=== PATIENT | female | born 1940 | race Caucasian/White ===

== ENCOUNTER 2018-11-05 11:26 | Inpatient (IN) ==
--- NOTE | 2018-11-05 12:00 | Emergency Department Note ---
Disposition Clinical Impression: Colitis Syncope Qualifiers: Syncope type: unspecified Qualified Code(s): R55 - Syncope and collapse GI bleed Qualifiers: GI bleed type/associated pathology: unspecified gastrointestinal hemorrhage type Qualified Code(s): K92.2 - Gastrointestinal hemorrhage, unspecified Disposition: Admitted As Inpatient Condition: Good GI Bleed HPI - General Chief complaint: ED GI Bleed Stated complaint: Rectal Bleeding Time Seen by Provider: 11/05/18 11:36 Source: patient, family Mode of arrival: private vehicle Limitations: no limitations Nursing Notes Reviewed: Yes Vital Signs Reviewed: Yes - History of Present Illness HPI Narrative: Patient is a 78-year-old female with past medical history including hypertension, diabetes mellitus type 2, presenting with chief complaint of bright red blood per rectum since yesterday. Patient has a history of having a history of syncope and GI bleed which she was admitted for and was found to have ischemic colitis. She did not require any transfusions. Last colonoscopy was in March 2018 which was normal per family. Patient states on the evening of the , patient had several episodes of syncope for the patient felt lightheaded and lost consciousness. Family witnessed the events and states she was out for less than a minute. EMS called and family and EMS were unable to get accurate blood pressure measurements. The patient did not want to come to the ER for further evaluation. The past 2 days the patient has been in her normal state of health until yesterday evening when the patient had 2 episodes of bright red blood per rectum. This was not associated with stool. This morning she had one episode of bright red blood filling the toilet. She complains of right lower left lower quadrant abdominal pain that is crampy and started after the first episode of rectal bleeding. Also complains of decreased appetite, generalized weakness, intermittent palpitations otherwise denies chest pain, lightheadedness, shortness of breath. - Related Data Home Medications Medication Instructions Recorded Confirmed Alendronate Sodium [Fosamax] 10 mg PO SA 02/04/16 11/05/18 Aspirin [Adult Low Dose Aspirin EC] 81 mg PO DAILY 02/04/16 11/05/18 Potassium Chloride [Klor-Con 10 meq PO DAILY 02/04/16 11/05/18 Sprinkle] Atorvastatin [Lipitor] 40 mg PO HS 08/28/17 11/05/18 Calcium Carbonate/Vitamin D3 1 tab PO DAILY 08/28/17 11/05/18 [Calcium 500 + Vit D Caplet] Multivit-Min/Iron/Folic/Lutein 1 tab PO DAILY 08/28/17 11/05/18 [Centrum Silver Women Tablet] DULoxetine [Cymbalta] 30 mg PO DAILY 11/05/18 11/05/18 Lisinopril [Zestril] 10 mg PO DAILY 11/05/18 11/05/18 Metoprolol Succinate [Toprol Xl] 100 mg PO DAILY 11/05/18 11/05/18 Pantoprazole Sodium [Protonix] 40 mg PO DAILY 11/05/18 11/05/18 Previous Rx's Medication Instructions Recorded Clopidogrel [Plavix] 75 mg PO DAILY #30 tablet 08/28/17 Allergies Allergy/AdvReac Type Severity Reaction Status Date / Time Amoxicillin Allergy Swelling Verified 08/28/17 10:42 of Lip/Tongue/Throat Oxycodone AdvReac See Verified 08/28/17 10:42 Comments All systems ED: reviewed and negative except as stated. Review of Systems: As Per HPI Constitutional: Denies: fever, chills Eyes: Denies: eye pain, vision change ENT ED: Denies: ear pain, throat pain Cardiovascular: Reports: palpitations. Denies: chest pain Respiratory: Denies: cough, dyspnea, wheezes Gastrointestinal: Reports: abdominal pain, other (Bright red blood per rectum). Denies: nausea, vomiting, diarrhea Genitourinary: Denies: urgency, dysuria Musculoskeletal: Denies: back pain, neck pain Integumentary: Denies: rash, abrasion Neurological: Reports: weakness. Denies: headache, paresthesias Allergic/Immunologic: Denies: urticaria, itchy eyes Past Medical History - Past Medical History Attestation: Yes The following information was validated with the patient. Source: patient Medical history: Reports: GERD, hyperlipidemia, hypertension, seizures Surgical history: Reports: knee replacement, orthopedic, other, other, vascular surgery Psychiatric history: Reports: anxiety, depression - Social History Smoking Status: Current every day smoker Smokeless Tobacco Status: No Alcohol use: Reports: none Drug use: Reports: none Physical Exam - General Limitations: no limitations General appearance: alert, in no apparent distress - Head Head exam: atraumatic, normocephalic, normal inspection - Eye Eye exam: Present: normal appearance, EOMI - ENT ENT exam: normal exam, normal oropharynx, mucous membranes moist - Neck Neck exam: Present: normal inspection, full ROM, trachea midline - Chest Chest inspection: Present: normal inspection, symmetric chest wall rise - Respiratory Respiratory exam: Present: normal lung sounds bilaterally. Absent: respiratory distress, wheezes - Cardiovascular Cardiovascular exam: Present: regular rate, normal rhythm, normal heart sounds - Abdominal Exam Abdominal exam: Present: soft, Non-Tender. Absent: tenderness, distention, guarding, rebound, rigidity - Rectal Exam Seal Extrusion Operator present during exam: Yes (Dr. Salcedo) Rectal exam: Present: normal rectal tone, bloody stool. Absent: hemorrhoids - Extremities Exam Extremities exam: Present: normal inspection, full ROM. Absent: tenderness, pedal edema - Neurological Exam Neurological exam: Present: alert, oriented X3, CN II-XII intact - Psychiatric Psychiatric exam: Present: normal affect, normal mood - Skin Skin exam: Present: warm, dry, intact, normal color Course Vital Signs Temperature 98.2 F 11/05/18 11:29 Pulse Rate 108 11/05/18 11:29 Respiratory Rate 18 11/05/18 11:29 Blood Pressure 134/84 11/05/18 11:29 O2 Sat by Pulse Oximetry 18 11/05/18 11:29 Temperature 98.2 F 11/05/18 11:29 Pulse Rate 108 11/05/18 11:29 Respiratory Rate 18 11/05/18 11:29 Blood Pressure 134/84 11/05/18 11:29 O2 Sat by Pulse Oximetry 18 11/05/18 11:29 Oxygen Delivery Oxygen Delivery Room Air GI Bleed - [facility] Narrative Medical decision making narrative: Patient presented with similar signs and symptoms couple years ago, and was found to have ischemic colitis secondary to transient hypotension. Patient is complaining of lower abdominal pain and 3 episodes of bright red blood per rectum since yesterday evening. No peritoneal signs on abdominal examination. We will obtain CT abdomen and pelvis with IV contrast, CBC, BMP, type and scr een, PT INR. Patient also had a syncopal event and complaining of generalized weakness and will also obtain EKG, urinalysis. 12:30 EKG without acute ischemic changes. Rectal examination completed with land acquisition analyst with positive bright red blood, no hemorrhoids. Hemoglobin is 12.6. Patient is not tachycardic or hypotensive. 12:55 Stool hemoccult positive 14:15 Labs and imaging reviewed. Patient has mild leukocytosis. Mild elevation in creatinine otherwise it is at her baseline. CT results positive for colitis. We will start IV antibiotics with flagyl and cipro and admit the patient for further management of colitis. 14:30 Discussed with hospitalist who accepts admission. Patient remains medically stable. - Medical Records Medical records reviewed: Yes I reviewed the patient's medical records. - Lab Data Lab results reviewed: Yes I reviewed the patient's lab results. Result diagrams: 11/05/18 12:17 11/05/18 12:17 Lab Results 11/05/18 11/05/18 11/05/18 Range/Units 12:17 12:17 12:17 WBC 12.5 H (4.3-11.1) K/mcL RBC 4.10 (3.82-4.97) M/mcL Hgb 12.6 (11.5-15.4) g/dL Hct 38.4 (35.3-44.9) % MCV 93.7 (83.0-100.0) fL MCH 30.7 (28.0-33.3) pg MCHC 32.8 (31.6-35.5) g/dL RDW 13.8 (11.5-14.5) % Plt Count 180 (140-400) K/mcL MPV 11.0 (9.4-12.4) fL Immature Gran % 0.3 (0-4) % Seg Neutrophils % 86.2 % Lymphocytes % 6.7 % Monocytes % 6.5 % Eosinophils % 0.1 % Basophils % 0.2 % Neutrophils # 10.8 H (1.6-8.9) K/mcL Lymphocytes # 0.8 (0.6-4.6) K/mcL Monocytes # 0.8 (0.0-1.3) K/mcL Eosinophils # 0.0 (0.0-0.6) K/mcL Basophils # 0.0 (0.0-0.2) K/mcL PT (9.4-12.1) Seconds INR Sodium 134 L (136-145) mEq/L Potassium 4.0 (3.5-5.1) mEq/L Chloride 100 (98-107) mEq/L Carbon Dioxide 24 (23-29) mEq/L BUN 27 H (8-23) mg/dL Creatinine 1.24 H (0.60-1.20) mg/dL Est GFR ( Amer) 51 L (> 60) Est GFR (Non-Af Amer) 42 L (> 60) BUN/Creatinine Ratio 22 (6-26) Glucose 98 (70-105) mg/dL Calculated Osmolality 283 (280-300) Lactic Acid 1.2 (0.5-2.2) mmol/L Calcium 9.6 (8.6-10.3) mg/dL Urine Color (Yellow) Urine Clarity (Clear) Urine pH (5.0-8.0) pH Units Ur Specific [place] (1.010-1.025) Urine Protein (Neg-Trace) mg/dL Urine Glucose (UA) (Normal) mg/dL Urine Ketones (Negative) mg/dL Urine Blood (Negative) Urine Nitrite (Negative) Urine Bilirubin (Negative) Urine Urobilinogen (Normal) mg/dL Ur Leukocyte Esterase (Negative) Urine Microscopic RBC (0-3) per hpf Urine Microscopic WBC (0-3) per hpf Ur Squamous Epith Cells (None-Few) per lpf Urine Bacteria (None-Few) per hpf Hyaline Casts (None-Few) per lpf Ur Culture Indicated? (NO) Stool Occult Bld Scrn (Negative) Blood Type Antibody Screen 11/05/18 11/05/18 11/05/18 Range/Units 12:17 12:17 12:29 WBC (4.3-11.1) K/mcL RBC (3.82-4.97) M/mcL Hgb (11.5-15.4) g/dL Hct (35.3-44.9) % MCV (83.0-100.0) fL MCH (28.0-33.3) pg MCHC (31.6-35.5) g/dL RDW (11.5-14.5) % Plt Count (140-400) K/mcL MPV (9.4-12.4) fL Immature Gran % (0-4) % Seg Neutrophils % % Lymphocytes % % Monocytes % % Eosinophils % % Basophils % % Neutrophils # (1.6-8.9) K/mcL Lymphocytes # (0.6-4.6) K/mcL Monocytes # (0.0-1.3) K/mcL Eosinophils # (0.0-0.6) K/mcL Basophils # (0.0-0.2) K/mcL PT 13.7 H (9.4-12.1) Seconds INR 1.2 Sodium (136-145) mEq/L Potassium (3.5-5.1) mEq/L Chloride (98-107) mEq/L Carbon Dioxide (23-29) mEq/L BUN (8-23) mg/dL Creatinine (0.60-1.20) mg/dL Est GFR ( Amer) (> 60) Est GFR (Non-Af Amer) (> 60) BUN/Creatinine Ratio (6-26) Glucose (70-105) mg/dL Calculated Osmolality (280-300) Lactic Acid (0.5-2.2) mmol/L Calcium (8.6-10.3) mg/dL Urine Color (Yellow) Urine Clarity (Clear) Urine pH (5.0-8.0) pH Units Ur Specific [place] (1.010-1.025) Urine Protein (Neg-Trace) mg/dL Urine Glucose (UA) (Normal) mg/dL Urine Ketones (Negative) mg/dL Urine Blood (Negative) Urine Nitrite (Negative) Urine Bilirubin (Negative) Urine Urobilinogen (Normal) mg/dL Ur Leukocyte Esterase (Negative) Urine Microscopic RBC (0-3) per hpf Urine Microscopic WBC (0-3) per hpf Ur Squamous Epith Cells (None-Few) per lpf Urine Bacteria (None-Few) per hpf Hyaline Casts (None-Few) per lpf Ur Culture Indicated? (NO) Stool Occult Bld Scrn Positive A (Negative) Blood Type A POSITIVE Antibody Screen NEGATIVE 11/05/18 Range/Units 13:04 WBC (4.3-11.1) K/mcL RBC (3.82-4.97) M/mcL Hgb (11.5-15.4) g/dL Hct (35.3-44.9) % MCV (83.0-100.0) fL MCH (28.0-33.3) pg MCHC (31.6-35.5) g/dL RDW (11.5-14.5) % Plt Count (140-400) K/mcL MPV (9.4-12.4) fL Immature Gran % (0-4) % Seg Neutrophils % % Lymphocytes % % Monocytes % % Eosinophils % % Basophils % % Neutrophils # (1.6-8.9) K/mcL Lymphocytes # (0.6-4.6) K/mcL Monocytes # (0.0-1.3) K/mcL Eosinophils # (0.0-0.6) K/mcL Basophils # (0.0-0.2) K/mcL PT (9.4-12.1) Seconds INR Sodium (136-145) mEq/L Potassium (3.5-5.1) mEq/L Chloride (98-107) mEq/L Carbon Dioxide (23-29) mEq/L BUN (8-23) mg/dL Creatinine (0.60-1.20) mg/dL Est GFR ( Amer) (> 60) Est GFR (Non-Af Amer) (> 60) BUN/Creatinine Ratio (6-26) Glucose (70-105) mg/dL Calculated Osmolality (280-300) Lactic Acid (0.5-2.2) mmol/L Calcium (8.6-10.3) mg/dL Urine Color Dark Yellow (Yellow) Urine Clarity Clear (Clear) Urine pH 6.0 (5.0-8.0) pH Units Ur Specific [place] 1.024 (1.010-1.025) Urine Protein Trace (Neg-Trace) mg/dL Urine Glucose (UA) Normal (Normal) mg/dL Urine Ketones 15 H (Negative) mg/dL Urine Blood Negative (Negative) Urine Nitrite Negative (Negative) Urine Bilirubin Moderate H (Negative) Urine Urobilinogen Normal (Normal) mg/dL Ur Leukocyte Esterase Trace H (Negative) Urine Microscopic RBC 0-3 (0-3) per hpf Urine Microscopic WBC 3-5 H (0-3) per hpf Ur Squamous Epith Cells Many H (None-Few) per lpf Urine Bacteria None Seen (None-Few) per hpf Hyaline Casts None Seen (None-Few) per lpf Ur Culture Indicated? NO. A (NO) Stool Occult Bld Scrn (Negative) Blood Type Antibody Screen - Radiology Data Radiology results reviewed: Yes I reviewed the patient's radiology results. Abdomen/Pelvis CTA 11/05/18 12:02 IMPRESSION: 1. Extensive colonic wall thickening, edema and pericolonic inflammation representing nonspecific colitis. 2. Small ascites. 3. Bilateral nonobstructing renal calculi. 4. Ectatic abdominal aorta. 5. Atherosclerosis. D/ / 11/05/2018 14:17:09 Joshua Griggs MD / clay Interpreting Provider: Joshua Griggs MD - EKG Data EKG attestation: Yes I reviewed and interpreted this EKG. EKG results narrative: EKG from today at 1232 shows sinus rhythm with heart rate 65. [address] elevation in V2 otherwise no other ST elevation or depression in other leads.Reciprocal changes. HI interval 151. QRS duration 92. Compared to prior EKG on August 252016 which at that time showed sinus bradycardia heart rate 53.
[2018-11-05] MEDS ORDERED: Isovue-370 500 ML INFUS..BTL IV ONE (12:02)
--- NOTE | 2018-11-05 12:04 | Emergency Department Note ---
Disposition Clinical Impression: Colitis, Syncope, GI bleed Disposition: Admitted As Inpatient Condition: Good General Adult HPI - General Chief complaint: ED GI Bleed Stated complaint: Rectal Bleeding Time Seen by Provider: 11/05/18 11:36 Source: patient, family Mode of arrival: private vehicle Limitations: no limitations - History of Present Illness Pain Scale: 5 - Related Data Home Medications Medication Instructions Recorded Confirmed Alendronate Sodium [Fosamax] 10 mg PO SA 02/04/16 11/05/18 Aspirin [Adult Low Dose Aspirin EC] 81 mg PO DAILY 02/04/16 11/05/18 Potassium Chloride [Klor-Con 10 meq PO DAILY 02/04/16 11/05/18 Sprinkle] Atorvastatin [Lipitor] 40 mg PO HS 08/28/17 11/05/18 Calcium Carbonate/Vitamin D3 1 tab PO DAILY 08/28/17 11/05/18 [Calcium 500 + Vit D Caplet] Multivit-Min/Iron/Folic/Lutein 1 tab PO DAILY 08/28/17 11/05/18 [Centrum Silver Women Tablet] DULoxetine [Cymbalta] 30 mg PO DAILY 11/05/18 11/05/18 Lisinopril [Zestril] 10 mg PO DAILY 11/05/18 11/05/18 Metoprolol Succinate [Toprol Xl] 100 mg PO DAILY 11/05/18 11/05/18 Pantoprazole Sodium [Protonix] 40 mg PO DAILY 11/05/18 11/05/18 Previous Rx's Medication Instructions Recorded Clopidogrel [Plavix] 75 mg PO DAILY #30 tablet 08/28/17 Allergies Allergy/AdvReac Type Severity Reaction Status Date / Time Amoxicillin Allergy Swelling Verified 08/28/17 10:42 of Lip/Tongue/Throat Oxycodone AdvReac See Verified 08/28/17 10:42 Comments Past Medical History - Past Medical History Medical history: Reports: GERD, hyperlipidemia, hypertension, seizures Surgical history: Reports: knee replacement, orthopedic, other, other, vascular surgery Psychiatric history: Reports: anxiety, depression - Social History Smoking Status: Current every day smoker Smokeless Tobacco Status: No Alcohol use: Reports: none Drug use: Reports: none Physical Exam - General Limitations: no limitations General appearance: alert, in no apparent distress Course Vital Signs Temperature 98.2 F 11/05/18 11:29 Pulse Rate 108 11/05/18 11:29 Respiratory Rate 18 11/05/18 11:29 Blood Pressure 134/84 11/05/18 11:29 O2 Sat by Pulse Oximetry 18 11/05/18 11:29 Temperature 98.2 F 11/05/18 11:29 Pulse Rate 108 11/05/18 11:29 Respiratory Rate 18 11/05/18 11:29 Blood Pressure 134/84 11/05/18 11:29 O2 Sat by Pulse Oximetry 18 11/05/18 11:29 Oxygen Delivery Oxygen Delivery Room Air Medical Decision Making - Lab Data Result diagrams: 11/05/18 12:17 11/05/18 12:17 Lab Results 11/05/18 11/05/18 11/05/18 Range/Units 12:17 12:17 12:17 WBC 12.5 H (4.3-11.1) K/mcL RBC 4.10 (3.82-4.97) M/mcL Hgb 12.6 (11.5-15.4) g/dL Hct 38.4 (35.3-44.9) % MCV 93.7 (83.0-100.0) fL MCH 30.7 (28.0-33.3) pg MCHC 32.8 (31.6-35.5) g/dL RDW 13.8 (11.5-14.5) % Plt Count 180 (140-400) K/mcL MPV 11.0 (9.4-12.4) fL Immature Gran % 0.3 (0-4) % Seg Neutrophils % 86.2 % Lymphocytes % 6.7 % Monocytes % 6.5 % Eosinophils % 0.1 % Basophils % 0.2 % Neutrophils # 10.8 H (1.6-8.9) K/mcL Lymphocytes # 0.8 (0.6-4.6) K/mcL Monocytes # 0.8 (0.0-1.3) K/mcL Eosinophils # 0.0 (0.0-0.6) K/mcL Basophils # 0.0 (0.0-0.2) K/mcL PT (9.4-12.1) Seconds INR Sodium 134 L (136-145) mEq/L Potassium 4.0 (3.5-5.1) mEq/L Chloride 100 (98-107) mEq/L Carbon Dioxide 24 (23-29) mEq/L BUN 27 H (8-23) mg/dL Creatinine 1.24 H (0.60-1.20) mg/dL Est GFR ( Amer) 51 L (> 60) Est GFR (Non-Af Amer) 42 L (> 60) BUN/Creatinine Ratio 22 (6-26) Glucose 98 (70-105) mg/dL Calculated Osmolality 283 (280-300) Lactic Acid 1.2 (0.5-2.2) mmol/L Calcium 9.6 (8.6-10.3) mg/dL Urine Color (Yellow) Urine Clarity (Clear) Urine pH (5.0-8.0) pH Units Ur Specific [place] (1.010-1.025) Urine Protein (Neg-Trace) mg/dL Urine Glucose (UA) (Normal) mg/dL Urine Ketones (Negative) mg/dL Urine Blood (Negative) Urine Nitrite (Negative) Urine Bilirubin (Negative) Urine Urobilinogen (Normal) mg/dL Ur Leukocyte Esterase (Negative) Urine Microscopic RBC (0-3) per hpf Urine Microscopic WBC (0-3) per hpf Ur Squamous Epith Cells (None-Few) per lpf Urine Bacteria (None-Few) per hpf Hyaline Casts (None-Few) per lpf Ur Culture Indicated? (NO) Stool Occult Bld Scrn (Negative) Blood Type Antibody Screen 11/05/18 11/05/18 11/05/18 Range/Units 12:17 12:17 12:29 WBC (4.3-11.1) K/mcL RBC (3.82-4.97) M/mcL Hgb (11.5-15.4) g/dL Hct (35.3-44.9) % MCV (83.0-100.0) fL MCH (28.0-33.3) pg MCHC (31.6-35.5) g/dL RDW (11.5-14.5) % Plt Count (140-400) K/mcL MPV (9.4-12.4) fL Immature Gran % (0-4) % Seg Neutrophils % % Lymphocytes % % Monocytes % % Eosinophils % % Basophils % % Neutrophils # (1.6-8.9) K/mcL Lymphocytes # (0.6-4.6) K/mcL Monocytes # (0.0-1.3) K/mcL Eosinophils # (0.0-0.6) K/mcL Basophils # (0.0-0.2) K/mcL PT 13.7 H (9.4-12.1) Seconds INR 1.2 Sodium (136-145) mEq/L Potassium (3.5-5.1) mEq/L Chloride (98-107) mEq/L Carbon Dioxide (23-29) mEq/L BUN (8-23) mg/dL Creatinine (0.60-1.20) mg/dL Est GFR ( Amer) (> 60) Est GFR (Non-Af Amer) (> 60) BUN/Creatinine Ratio (6-26) Glucose (70-105) mg/dL Calculated Osmolality (280-300) Lactic Acid (0.5-2.2) mmol/L Calcium (8.6-10.3) mg/dL Urine Color (Yellow) Urine Clarity (Clear) Urine pH (5.0-8.0) pH Units Ur Specific [place] (1.010-1.025) Urine Protein (Neg-Trace) mg/dL Urine Glucose (UA) (Normal) mg/dL Urine Ketones (Negative) mg/dL Urine Blood (Negative) Urine Nitrite (Negative) Urine Bilirubin (Negative) Urine Urobilinogen (Normal) mg/dL Ur Leukocyte Esterase (Negative) Urine Microscopic RBC (0-3) per hpf Urine Microscopic WBC (0-3) per hpf Ur Squamous Epith Cells (None-Few) per lpf Urine Bacteria (None-Few) per hpf Hyaline Casts (None-Few) per lpf Ur Culture Indicated? (NO) Stool Occult Bld Scrn Positive A (Negative) Blood Type A POSITIVE Antibody Screen NEGATIVE 11/05/18 Range/Units 13:04 WBC (4.3-11.1) K/mcL RBC (3.82-4.97) M/mcL Hgb (11.5-15.4) g/dL Hct (35.3-44.9) % MCV (83.0-100.0) fL MCH (28.0-33.3) pg MCHC (31.6-35.5) g/dL RDW (11.5-14.5) % Plt Count (140-400) K/mcL MPV (9.4-12.4) fL Immature Gran % (0-4) % Seg Neutrophils % % Lymphocytes % % Monocytes % % Eosinophils % % Basophils % % Neutrophils # (1.6-8.9) K/mcL Lymphocytes # (0.6-4.6) K/mcL Monocytes # (0.0-1.3) K/mcL Eosinophils # (0.0-0.6) K/mcL Basophils # (0.0-0.2) K/mcL PT (9.4-12.1) Seconds INR Sodium (136-145) mEq/L Potassium (3.5-5.1) mEq/L Chloride (98-107) mEq/L Carbon Dioxide (23-29) mEq/L BUN (8-23) mg/dL Creatinine (0.60-1.20) mg/dL Est GFR ( Amer) (> 60) Est GFR (Non-Af Amer) (> 60) BUN/Creatinine Ratio (6-26) Glucose (70-105) mg/dL Calculated Osmolality (280-300) Lactic Acid (0.5-2.2) mmol/L Calcium (8.6-10.3) mg/dL Urine Color Dark Yellow (Yellow) Urine Clarity Clear (Clear) Urine pH 6.0 (5.0-8.0) pH Units Ur Specific [place] 1.024 (1.010-1.025) Urine Protein Trace (Neg-Trace) mg/dL Urine Glucose (UA) Normal (Normal) mg/dL Urine Ketones 15 H (Negative) mg/dL Urine Blood Negative (Negative) Urine Nitrite Negative (Negative) Urine Bilirubin Moderate H (Negative) Urine Urobilinogen Normal (Normal) mg/dL Ur Leukocyte Esterase Trace H (Negative) Urine Microscopic RBC 0-3 (0-3) per hpf Urine Microscopic WBC 3-5 H (0-3) per hpf Ur Squamous Epith Cells Many H (None-Few) per lpf Urine Bacteria None Seen (None-Few) per hpf Hyaline Casts None Seen (None-Few) per lpf Ur Culture Indicated? NO. A (NO) Stool Occult Bld Scrn (Negative) Blood Type Antibody Screen Attestation Statement - Attestation Attestation: I examined this patient and my medical decision-making was reviewed with the Resident Physician. I agree with the documented findings, disposition and treatment plan as described except to the extent set forth below. Patient presents to the ED with a chief complaint of rectal bleeding and syncope. Syncopal episode was 2 days ago while on the toilet. Yesterday she started having bright red blood with bowel movements. Bleeding in between as well. No history of rectal bleeding. She said she had colonoscopy in March that showed diverticulosis. On examination she appears well. Pleasant conversant. Soft abdomen with lower tenderness. Plan. Basic labs with coags and CT abdomen pelvis. CT shows colitis. Patient is given antibiotics and admitted. Abdomen/Pelvis CTA 11/05/18 12:02 IMPRESSION: 1. Extensive colonic wall thickening, edema and pericolonic inflammation representing nonspecific colitis. 2. Small ascites. 3. Bilateral nonobstructing renal calculi. 4. Ectatic abdominal aorta. 5. Atherosclerosis. D/ / 11/05/2018 14:17:09 Joshua Griggs MD / clay Interpreting Provider: Joshua Griggs MD
[2018-11-05 12:29] LABS: Basophils % 0.2 %; Eosinophils % 0.1 %; Hematocrit 38.4 % (35.3-44.9); Hemoglobin 12.6 g/dL (11.5-15.4); Immature Granulocytes % 0.3 % (0-4); Lymphocytes # 0.8 K/mcL (0.6-4.6); Lymphocytes % 6.7 %; Mean Corpuscular HGB Conc 32.8 g/dL (31.6-35.5); Mean Corpuscular Hemoglobin 30.7 pg (28.0-33.3); Mean Corpuscular Volume 93.7 fL (83.0-100.0); Monocytes # 0.8 K/mcL (0.0-1.3); Monocytes % 6.5 %; Neutrophils # 10.8 K/mcL (1.6-8.9); Platelet Count 180 K/mcL (140-400); Red Cell Distribution Width 13.8 % (11.5-14.5); Segmented Neutrophils % 86.2 %
[2018-11-05 12:37] LABS: INR 1.2; Prothrombin Time 13.7 Seconds (9.4-12.1)
[2018-11-05 13:09] LABS: Calcium 9.6 mg/dL (8.6-10.3)
[2018-11-05 13:11] LABS: Bilirubin,Urine Moderate (Negative); Blood,Urine Negative (Negative); Clarity,Urine Clear (Clear); Color,Urine Dark Yellow (Yellow); Glucose,Urine (UA) Normal (Normal); Ketones,Urine 15 mg/dL (Negative); Leukocyte Esterase,Urine Trace (Negative); Nitrite,Urine Negative (Negative); Protein,Urine Trace mg/dL (Neg-Trace); Specific Gravity,Urine 1.024 (1.010-1.025); Urobilinogen,Urine Normal (Normal)
[2018-11-05 13:13] LABS: Bacteria,Urine None Seen per hpf (None-Few); Hyaline Casts,Urine None Seen per lpf (None-Few); RBC,Urine 0-3 per hpf (0-3); Squamous Epithelial Cell,Urine Many per lpf (None-Few)
[2018-11-05] MEDS ORDERED: 0.9 % Sodium Chloride 500 ML IVC ONE (14:17)
[2018-11-05] MEDS ORDERED: MetroNIDAZOLE 500 MG/100 ML 500 MG/100 ML BAG IVPB ONE (14:18)
--- NOTE | 2018-11-05 15:43 | Internal Med History&Physical ---
Date of Encounter: 11/05/18 Time of Encounter: 15:34 Internal Medicine - H&P: HPI Chief complaint: BRBPR Admitted From: Home Plans for Post Hospital Care: Home History of present illness: Ms. Orellana is a 78 year old female who has history of hypertension hyperlipidemia GERD depression presented to emergency room for bright red blood per rectal. Patient developed rectal bleeding last evening with a large bloody bowel movement, this morning she had another 2 episodes with fresh red blood from rectal. She also has some abdominal pain started from yesterday, constant, a 5 out of 10 ,lower abdominal, associated was nausea and loss of appetite. She denies fever or chills. 2 days ago she had to syncopal episode, that was Day she was in the bathroom she passed out then her Family try to help her up she keep passing out over last 40 minutes, EMS was called and she was find a low blood pressure 90/?. Patient refused to came to ER. After syncopal episode and she started nausea, loss of appetite and mild abdominal pain.. In the emergency room she was find hemoglobin 12.6, WBC 12K, creatinine was elevated, and CTA abdomen showed monk-colitis. patient is going be admitted for GI bleeding from colitis and a syncopal workup Past Med Surg Social Fam HX - Past Medical History Medical history: GERD, hyperlipidemia, hypertension, seizures Additional medical history: colon polyps, ddd, [id number], PVD, Osetopenia Psychiatric history: anxiety, depression - Past Surgical History Surgical History: knee replacement, orthopedic, other, other, vascular surgery Additional surgical history: egd/colonoscopy,back,shoulder,hemorrhoidectomy - Social History Smoking Status: Current every day smoker Smokeless Tobacco Status: No Alcohol use: none Drug use: none - Family History Mother Living Status: Hx Family Cardiac Disorders: Yes (heart attack) Hx Family Neurologic Disorders: Yes (Stroke) Sister Living Status: Still Living Hx Family Cardiac Disorders: Yes Internal Medicine - H&P: Meds Alendronate Sodium [Fosamax] 10 mg PO SA 02/04/16 [History] Aspirin [Adult Low Dose Aspirin EC] 81 mg PO DAILY 02/04/16 [History] Potassium Chloride [Klor-Con Sprinkle] 10 meq PO DAILY 02/04/16 [History] Atorvastatin [Lipitor] 40 mg PO HS 08/28/17 [History] Calcium Carbonate/Vitamin D3 [Calcium 500 + Vit D Caplet] 1 tab PO DAILY 08/28/17 [History] Clopidogrel [Plavix] 75 mg PO DAILY #30 tablet 08/28/17 [Rx] Multivit-Min/Iron/Folic/Lutein [Centrum Silver Women Tablet] 1 tab PO DAILY 08/28/17 [History] DULoxetine [Cymbalta] 30 mg PO DAILY 11/05/18 [History] Lisinopril [Zestril] 10 mg PO DAILY 11/05/18 [History] Metoprolol Succinate [Toprol Xl] 100 mg PO DAILY 11/05/18 [History] Pantoprazole Sodium [Protonix] 40 mg PO DAILY 11/05/18 [History] Allergy/AdvReac Type Severity Reaction Status Date / Time Amoxicillin Allergy Swelling Verified 08/28/17 10:42 of Lip/Tongue/Throat Oxycodone AdvReac See Verified 08/28/17 10:42 Comments All Systems PM: A 10-system review of systems was performed and is negative for pertinent findings except as documented above in the HPI. - Constitutional Vitals: Temp Pulse Resp BP Pulse Ox 98.2 F 108 18 134/84 18 11/05/18 11:29 11/05/18 11:29 11/05/18 11:29 11/05/18 11:29 11/05/18 11:29 General appearance: Present: A&O X 3, pleasant Exam: CONSTITUTIONAL: Patient appears as an age appropriate female well developed, in no acute distress. EYES Clear sclerae, bilateral pupils are equal, reactive to light and accommodation. Extraocular movements are intact RESPIRATORY: No accessory muscle use, bilateral clear to auscultation, no wheezing, no crackles/rales. CARDIOVASCULAR: Regular heart rate, normal S1 and S2, no murmurs GASTROINTESTINAL: bowel sounds present, soft, mild tenderness. No hepatosplenomegaly. No bilateral CVA tenderness MUSCULOSKELETAL: Joints in normal range of motion, no clubbing, no edema, no cyanosis. Bilateral peripheral pulses 2+ LYMPHATIC no lymphadenopathy in neck, groin and axilla bilaterally, no thyromegaly. NEUROLOGIC: CN II to XII are grossly intact, no focal neurological deficit. Deep tendon reflexes 2+ bilaterally. Normal light touch sensation to upper and lower extremity PSYCHIATRIC: Oriented x3, with good insight, mood is euthymic. No hallucinations or delusions. SKIN: Skin warm and dry, no rashes, no open wound. Internal Med - H&P Results - Labs CBC & Chem 7: 11/05/18 12:17 11/05/18 12:17 Labs: Short CBC 11/05/18 Range/Units 12:17 WBC 12.5 H (4.3-11.1) K/mcL Hgb 12.6 (11.5-15.4) g/dL Hct 38.4 (35.3-44.9) % Plt Count 180 (140-400) K/mcL Neutrophils # 10.8 H (1.6-8.9) K/mcL BMP 11/05/18 12:17 Sodium 134 L Potassium 4.0 Chloride 100 Carbon Dioxide 24 BUN 27 H Creatinine 1.24 H Glucose 98 Calcium 9.6 Urine 11/05/18 Range/Units 13:04 Urine Color Dark Yellow (Yellow) Urine Clarity Clear (Clear) Urine pH 6.0 (5.0-8.0) pH Units Ur Specific [place] 1.024 (1.010-1.025) Urine Protein Trace (Neg-Trace) mg/dL Urine Glucose (UA) Normal (Normal) mg/dL - Impressions ITS Impressions Abdomen/Pelvis CTA 11/05/18 12:02 IMPRESSION: 1. Extensive colonic wall thickening, edema and pericolonic inflammation representing nonspecific colitis. 2. Small ascites. 3. Bilateral nonobstructing renal calculi. 4. Ectatic abdominal aorta. 5. Atherosclerosis. D/ / 11/05/2018 14:17:09 Joshua Griggs MD / clay Interpreting Provider: Joshua Griggs MD - Assessment and plan (1) GI bleed Current Visit: Yes Status: Acute Assessment and plan: from colitis, contineu ATB Qualifiers: GI bleed type/associated pathology: anorectal hemorrhage Qualified Code(s): K62.5 - Hemorrhage of anus and rectum (2) Pancolitis Current Visit: Yes Status: Acute Assessment and plan: possible ischemic bowel due to hypotension and syncope, conitneu NPO, ATB, CT angio of abdomen is done in ER (3) MIN (acute kidney injury) Current Visit: Yes Status: Acute Assessment and plan: due to hypotension, conitnue IVF (4) Episode of syncope Current Visit: Yes Status: Acute Assessment and plan: likley dehydration and overmedicated, hold BB and ACEI Qualifiers: Syncope type: vasovagal syncope Qualified Code(s): R55 - Syncope and collapse (5) Hypertension Current Visit: Yes Status: Acute Qualifiers: Hypertension type: essential hypertension Qualified Code(s): I10 - Essential (primary) hypertension - Time Spent With Patient Total time spent is greater than 50% in coordination of care (as documented) at patient's floor/unit and/or counseling patient: Greater than 35 minutes
[2018-11-05] MEDS ORDERED: Naloxone 0.4 MG/ML INJ IVP PRN (15:59)
[2018-11-05] MEDS: *HR* Heparin 5,000 UNIT/ML VIAL SQ SCH (17:31)
[2018-11-05] MEDS: Ringers Solution, Lactated 1,000 ML IVC SCH (17:31)
[2018-11-05] MEDS ORDERED: Acetaminophen 325 MG TABLET PO PRN (18:53)
[2018-11-05] MEDS: MetroNIDAZOLE 500 MG/100 ML 500 MG/100 ML BAG IVPB SCH (23:46)
[2018-11-06] MEDS ORDERED: *HR* Dextrose 50 % in Water (Syg) 50 ML SYRINGE IVP PRN (01:18)
[2018-11-06] MEDS ORDERED: D5% in Water 1,000 ML IVC PRN (01:18)
[2018-11-06] MEDS ORDERED: Dextrose Gel 15 GM/37.5 ML TUBE PO PRN ×2 (01:18)
[2018-11-06 04:56] LABS: Basophils % 0.2 %; Eosinophils % 0.3 %; Hematocrit 35.1 % (35.3-44.9); Hemoglobin 11.4 g/dL (11.5-15.4); Immature Granulocytes % 0.3 % (0-4); Lymphocytes # 1.3 K/mcL (0.6-4.6); Lymphocytes % 14.5 %; Mean Corpuscular HGB Conc 32.5 g/dL (31.6-35.5); Mean Corpuscular Hemoglobin 30.5 pg (28.0-33.3); Mean Corpuscular Volume 93.9 fL (83.0-100.0); Mean Platelet Volume 11.1 fL (9.4-12.4); Monocytes # 0.8 K/mcL (0.0-1.3); Monocytes % 9.5 %; Neutrophils # 6.5 K/mcL (1.6-8.9); Platelet Count 160 K/mcL (140-400); Red Blood Count 3.74 M/mcL (3.82-4.97); Red Cell Distribution Width 13.8 % (11.5-14.5); Segmented Neutrophils % 75.2 %
[2018-11-06 05:15] LABS: BUN/Creatinine Ratio 19 (6-26); Blood Urea Nitrogen 18 mg/dL (8-23); Calcium 8.8 mg/dL (8.6-10.3); Carbon Dioxide 23 mEq/L (23-29); Chloride 105 mEq/L (98-107); Chol/HDL Ratio 2.4 (0-4.9); Cholesterol 130 mg/dL (< 200); Glucose 73 mg/dL (70-105); HDL Cholesterol 55 mg/dL (40-59); LDL Cholesterol,Calculated 57 mg/dL (0-99); Osmolality,Calculated 284 (280-300); Potassium 3.1 mEq/L (3.5-5.1); Sodium 137 mEq/L (136-145); Triglycerides 88 mg/dL (< 150); eGFR For Non-African Americans 57 (> 60)
[2018-11-06] MEDS: *HR* Heparin 5,000 UNIT/ML VIAL SQ SCH (05:36)
[2018-11-06] MEDS: Ringers Solution, Lactated 1,000 ML IVC SCH (07:30)
[2018-11-06] MEDS: MetroNIDAZOLE 500 MG/100 ML 500 MG/100 ML BAG IVPB SCH (07:34)
[2018-11-06] MEDS ORDERED: Aspirin Enteric Coated 81 MG Tablet PO SCH (09:00)
--- NOTE | 2018-11-06 09:22 | Electrocardiograph Report ---
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
--- NOTE | 2018-11-06 11:19 | Internal Med Progress Note ---
Hospitalist Progress Note - Encounter Date of Encounter: 11/06/18 Time of Encounter: 11:17 - Subjective Interval History: Pt reports feeling bloated. She denies N/V or diarrhea. She denies CP or SOB. - Exam Vitals: Temp Pulse Resp BP Pulse Ox 98.0 F 63 15 127/64 94 11/06/18 07:07 11/06/18 07:07 11/06/18 07:07 11/06/18 07:07 11/06/18 07:07 Exam: CONSTITUTIONAL: Patient appears as an age appropriate female well developed, in no acute distress. EYES Clear sclerae, bilateral pupils are equal, reactive to light and accommodation. Extraocular movements are intact RESPIRATORY: No accessory muscle use, bilateral clear to auscultation, no wheezing, no crackles/rales. CARDIOVASCULAR: Regular heart rate, normal S1 and S2, no murmurs GASTROINTESTINAL: bowel sounds present, soft, mild tenderness. No hepatosplenomegaly. No bilateral CVA tenderness MUSCULOSKELETAL: Joints in normal range of motion, no clubbing, no edema, no cyanosis. Bilateral peripheral pulses 2+ LYMPHATIC no lymphadenopathy in neck, groin and axilla bilaterally, no thyromegaly. NEUROLOGIC: CN II to XII are grossly intact, no focal neurological deficit. Deep tendon reflexes 2+ bilaterally. Normal light touch sensation to upper and lower extremity PSYCHIATRIC: Oriented x3, with good insight, mood is euthymic. No hallucinations or delusions. SKIN: Skin warm and dry, no rashes, no open wound. - Assessment and Plan (1) GI bleed Current Visit: Yes Status: Acute Assessment and Plan: Occult blood positive. Hgb 11.4. Consulting GI to see. (2) Pancolitis Current Visit: Yes Status: Acute Assessment and Plan: Pt started on Cipro and Flagyl. Will consult GI to see. (3) Episode of syncope Current Visit: Yes Status: Acute Assessment and Plan: Likely dehydration. BP medication held on admission. Pt is on BB and ACEI (4) MIN (acute kidney injury) Current Visit: Yes Status: Acute Assessment and Plan: Resolved Cr down from 1.24 to 0.95 (5) HTN (hypertension) Current Visit: Yes Status: Chronic Assessment and Plan: Will slowly reintroduce BP medication. Will start with Metoprolol 100 mg PO QD. DVT Prophylaxis: Heparin - Summary of Assessment and Plan Summary of Assessment and Plan: History of present illness: Dr. Weldon Ms. Orellana is a 78 year old female who has history of hypertension hyperlipidemia GERD depression presented to emergency room for bright red blood per rectal. Patient developed rectal bleeding last evening with a large bloody bowel movement, this morning she had another 2 episodes with fresh red blood from rectal. She also has some abdominal pain started from yesterday, constant, a 5 out of 10 ,lower abdominal, associated was nausea and loss of appetite. She denies fever or chills. 2 days ago she had to syncopal episode, that was [place] Day she was in the bathroom she passed out then her Family try to help her up she keep passing out over last 40 minutes, EMS was called and she was find a low blood pressure 90/?. Patient refused to came to ER. After syncopal episode and she started nausea, loss of appetite and mild abdominal pain.. In the emergency room she was find hemoglobin 12.6, WBC 12K, creatinine was elevated, and CTA abdomen showed monk-colitis. patient is going be admitted for GI bleeding from colitis and a syncopal workup - Time Spent with Patient Total time spent is greater than 50% in coordination of care (as documented) at patient's floor/unit and/or counseling patient: less than 15 minutes Plan of Care Discussed with: patient Internal Medicine: Result - Labs CBC & Chem 7: 11/06/18 04:26 11/06/18 04:26 Labs: Short CBC 11/05/18 11/06/18 Range/Units 12:17 04:26 WBC 12.5 H 8.7 (4.3-11.1) K/mcL Hgb 12.6 11.4 L (11.5-15.4) g/dL Hct 38.4 35.1 L (35.3-44.9) % Plt Count 180 160 (140-400) K/mcL Neutrophils # 10.8 H 6.5 (1.6-8.9) K/mcL BMP 11/05/18 11/06/18 12:17 04:26 Sodium 134 L 137 Potassium 4.0 3.1 L Chloride 100 105 Carbon Dioxide 24 23 BUN 27 H 18 Creatinine 1.24 H 0.95 Glucose 98 73 Calcium 9.6 8.8 Cardiac Enzymes 11/05/18 11/05/18 11/06/18 Range/Units 16:55 21:50 04:26 Troponin I < 0.03 < 0.03 < 0.03 (< 0.04) ng/mL Urine 11/05/18 Range/Units 13:04 Urine Color Dark Yellow (Yellow) Urine Clarity Clear (Clear) Urine pH 6.0 (5.0-8.0) pH Units Ur Specific [place] 1.024 (1.010-1.025) Urine Protein Trace (Neg-Trace) mg/dL Urine Glucose (UA) Normal (Normal) mg/dL - ABG Interpretation ABG results: PT/INR, D-dimer PT 13.7 Seconds (9.4-12.1) H 11/05/18 12:17 - Impressions Impressions Abdomen/Pelvis CTA 11/05/18 12:02 IMPRESSION: 1. Extensive colonic wall thickening, edema and pericolonic inflammation representing nonspecific colitis. 2. Small ascites. 3. Bilateral nonobstructing renal calculi. 4. Ectatic abdominal aorta. 5. Atherosclerosis. D/ / 11/05/2018 14:17:09 Joshua Griggs MD / clay Interpreting Provider: Joshua Griggs MD Consult Discharge Plan - Plan Referrals: Corazon Vallejo MD [Primary Care Provider] - (1) GI bleed Qualifiers: GI bleed type/associated pathology: anorectal hemorrhage Qualified Code(s): K62.5 - Hemorrhage of anus and rectum (3) Episode of syncope Qualifiers: Syncope type: vasovagal syncope Qualified Code(s): R55 - Syncope and collapse (5) HTN (hypertension) Qualifiers: Hypertension type: essential hypertension Qualified Code(s): I10 - Essential (primary) hypertension
--- NOTE | 2018-11-06 14:02 | Gastroenterology Consult Note ---
Date of Encounter: 11/06/18 Time of Encounter: 13:40 - Assessment and plan (1) Colitis Current Visit: Yes Status: Acute Assessment and plan: CTA abdomen shows extensive monk-colitis. Likely ischemic colitis. Continue Cipro and Flagyl. Instructed patient that dehydration and constipation can lead to ischemic colitis. Recommend daily fiber supplement. Start clear liquid diet. If patient tolerating oral intake, ok to discharge home. Follow up in GI office with Dr. Rubio in 3 weeks. (2) GI bleed Current Visit: Yes Status: Acute Assessment and plan: Likely secondary to ischemic colitis. On admission Hgb 12.6 and today Hgb 11.4. Continue to monitor CBC and transfuse PRBC as needed. No further episodes of bleeding since admission. Qualifiers: GI bleed type/associated pathology: anorectal hemorrhage Qualified Code(s): K62.5 - Hemorrhage of anus and rectum - Time Spent With Patient Total time spent is greater than 50% in coordination of care (as documented) at patient's floor/unit and/or counseling patient: GI History of Present Illness - Data of Consult Patient: known to practice within the last 3 years Consult date: 11/06/18 Requesting Physician: Declan Weldon MD - Consult Narrative Reason for consult: Possitive fecal occult blood History of present illness: Ms. Orellana is a 78 year old female with PMHx of GERD, HLD, HTN, who presented to the ED for c/o BRBPR that started the evening of 11/03. She had 3 episodes of BRBPR prior to admission. She reported abdominal pain and cramping in the lower abdomen, which was associated with nausea. She reports a syncopal episode on as well. Patient reports normally having a BM every 1-2 days, and occasionally has to strain. On admission Hgb 12.6 and today Hgb 11.4. CTA abdomen shows extensive monk-colitis. Procedures: Colonoscopy 04/07/2018 Dr. Kemp: Diverticulosis, seven 2-3 mm hy perplastic polyps in rectum. Colonoscopy 02/08/2016 Dr. Zamarripa: Two tubular adenoma ranging from 5-10mm, ischemic colitis. EGD 02/08/2016 Dr. Zamarripa: Small hiatus hernia, emperic dilation of esophagus. NSAIDs: ASA Anticoagulation: Plavix Past Med Surg Social Fam HX - Past Medical History Medical history: GERD, hyperlipidemia, hypertension, seizures, other Additional medical history: colon polyps, ddd, [id number], PVD, Osetopenia, stents in bilateral legs Psychiatric history: anxiety, depression - Past Surgical History Surgical History: knee replacement, orthopedic, other, other, vascular surgery Additional surgical history: egd/colonoscopy,back,shoulder,hemorrhoidectomy - Social History Smoking Status: Current every day smoker Smokeless Tobacco Status: No Alcohol use: none Drug use: none - Family History Mother Living Status: Age at : 85 Hx Family Cardiac Disorders: Yes Hx Family Neurologic Disorders: Yes (Stroke) Sister Living Status: Still Living Hx Family Cardiac Disorders: Yes - Gastrointestinal Gastrointestinal: Present: as per HPI - Constitutional Constitutional: as per HPI - EENT Eyes: as per HPI Ears: Present: as per HPI Nose, mouth and throat: Present: as per HPI - Cardiovascular Cardiovascular ROS: Present: as per HPI - Respiratory Respiratory IM: Present: as per HPI - Genitourinary Genitourinary: Absent: change in color, Urinary frequency - Neurological ROS Neurological GI: Present: as per HPI - Hematologic/Lymphatic Hematologic/Lymphatic pediatric: Present: as per HPI - Musculoskeletal Musculoskeletal ROS GI: Present: as per HPI - Integumentary Integumentary GI: Present: as per HPI - Psychiatric ROS Psychiatric GI: Present: as per HPI - Endocrine Endocrine IM: Present: as per HPI - Constitutional Vitals: Temp Pulse Resp BP Pulse Ox 98.1 F 64 16 153/87 97 11/06/18 12:14 11/06/18 12:14 11/06/18 12:14 11/06/18 12:14 11/06/18 12:14 General appearance: Present: cooperative, A&O X 3, no acute distress, answers questions appropriately - Head Head exam: Present: atraumatic, normocephalic - Eye Eye exam: Present: normal appearance, sclera anicteric - ENT ENT exam: Present: mucous membranes dry - Neck Neck exam general surgery: Present: normal inspection, trachea midline - Respiratory Respiratory exam: Present: CTAB. Absent: rales, rhonchi - Cardiovascular Cardiovascular exam: Present: RRR, +S1, +S2 - GI/Abdominal GI/Abdominal exam: Present: soft, tenderness (Mild lower abdominal tenderness), no peritoneal signs. Absent: distended, firm, guarding - Rectal Rectal exam: Present: deferred - Extremities Exam Extremities exam: Present: warm - Neurological Exam Neurological exam: Present: no focal deficits - Psychiatric Psychiatric exam: Present: normal affect, normal mood - Skin Skin exam: Present: dry, intact, normal color, warm Results - Labs CBC & Chem 7: 11/06/18 04:26 11/06/18 04:26 Labs: Last Result Calcium 8.8 mg/dL (8.6-10.3) 11/06/18 04:26 Troponin I < 0.03 ng/mL (< 0.04) 11/06/18 04:26 Triglycerides 88 mg/dL (< 150) 11/06/18 04:26 Entire Visit Hgb 11.4 g/dL (11.5-15.4) L 11/06/18 04:26 Hct 35.1 % (35.3-44.9) L 11/06/18 04:26 PT 13.7 Seconds (9.4-12.1) H 11/05/18 12:17 - ABG ABG results: PT/INR, D-dimer PT 13.7 Seconds (9.4-12.1) H 11/05/18 12:17 - Impressions Impressions Abdomen/Pelvis CTA 11/05/18 12:02 IMPRESSION: 1. Extensive colonic wall thickening, edema and pericolonic inflammation representing nonspecific colitis. 2. Small ascites. 3. Bilateral nonobstructing renal calculi. 4. Ectatic abdominal aorta. 5. Atherosclerosis. D/ / 11/05/2018 14:17:09 Joshua Griggs MD / clay Interpreting Provider: Joshua Griggs MD Consult Discharge Plan - Plan Referrals: Corazon Vallejo MD [Primary Care Provider] -
--- NOTE | 2018-11-06 14:52 | Discharge Summary ---
- NOTES TO OUTPATIENT PROVIDER Notes to Outpatient Provider: PCP in 5 to 7 days. GI in 3 weeks Orders not resulted at time of discharge: Pending orders 11/05/18 12:15 Culture,Blood [BC] Stat Date of Encounter: 11/06/18 Time of Encounter: 14:50 - Discharge Diagnosis (1) GI bleed Priority: Primary Status: Acute Assessment and Plan: Occult blood positive. Hgb 11.4. Likely due to Pancolitis. Seen by GI and recommending Cipro and flagyl PO to complete course, daily fiber supplement, clear liquid diet with plans to advance slowly at home. Qualifiers: GI bleed type/associated pathology: anorectal hemorrhage Qualified Code(s): K62.5 - Hemorrhage of anus and rectum (2) Pancolitis Priority: Primary Status: Acute Assessment and Plan: Pt started on Cipro and Flagyl IV. Will DC on PO Cipro and Flagyl. (3) Episode of syncope Priority: Secondary Status: Resolved Assessment and Plan: Likely dehydration. BP medication held on admission. Okay to resume home dose BP meds Metoprolol and Lisinopril. Qualifiers: Syncope type: vasovagal syncope Qualified Code(s): R55 - Syncope and collapse (4) MIN (acute kidney injury) Priority: Secondary Status: Acute Assessment and Plan: Resolved, Cr down from 1.24 to 0.95 (5) Essential hypertension Priority: Secondary Status: Acute Assessment and Plan: Will slowly reintroduce BP medication. Will start with Metoprolol 100 mg PO QD. May resume Lisinopril at discharge. Hospital course: History of present illness: Dr. Weldon Ms. Orellana is a 78 year old female who has history of hypertension hyperlipidemia GERD depression presented to emergency room for bright red blood per rectal. Patient developed rectal bleeding last evening with a large bloody bowel movement, this morning she had another 2 episodes with fresh red blood from rectal. She also has some abdominal pain started from yesterday, constant, a 5 out of 10 ,lower abdominal, associated was nausea and loss of appetite. She denies fever or chills. 2 days ago she had to syncopal episode, that was [place] Day she was in the bathroom she passed out then her Family try to help her up she keep passing out over last 40 minutes, EMS was called and she was find a low blood pressure 90/?. Patient refused to came to ER. After syncopal episode and she started nausea, loss of appetite and mild abdominal pain.. In the emergency room she was find hemoglobin 12.6, WBC 12K, creatinine was elevated, and CTA abdomen showed monk-colitis. patient is going be admitted for GI bleeding from colitis and a syncopal workup Time spent discussing smoking cessation with patient: 3 to 10 minutes - Time Spent with Patient Total time spent providing and/or coordinating discharge services: Less than 30 minutes - Discharge Medications Prescriptions: Ciprofloxacin [Cipro] 500 mg PO BID 10 Days #20 tablet metroNIDAZOLE [Flagyl] 500 mg PO Q8H 10 Days #30 tablet Home Medications: Alendronate Sodium [Fosamax] 10 mg PO SA 02/04/16 [History] Aspirin [Adult Low Dose Aspirin EC] 81 mg PO DAILY 02/04/16 [History] Potassium Chloride [Klor-Con Sprinkle] 10 meq PO DAILY 02/04/16 [History] Atorvastatin [Lipitor] 40 mg PO HS 08/28/17 [History] Calcium Carbonate/Vitamin D3 [Calcium 500 + Vit D Caplet] 1 tab PO DAILY 08/28/17 [History] Clopidogrel [Plavix] 75 mg PO DAILY #30 tablet 08/28/17 [Rx] Multivit-Min/Iron/Folic/Lutein [Centrum Silver Women Tablet] 1 tab PO DAILY 08/28/17 [History] DULoxetine [Cymbalta] 30 mg PO DAILY 11/05/18 [History] Lisinopril [Zestril] 10 mg PO DAILY 11/05/18 [History] Metoprolol Succinate [Toprol Xl] 100 mg PO DAILY 11/05/18 [History] Pantoprazole Sodium [Protonix] 40 mg PO DAILY 11/05/18 [History] Ciprofloxacin [Cipro] 500 mg PO BID 10 Days #20 tablet 11/06/18 [Rx] metroNIDAZOLE [Flagyl] 500 mg PO Q8H 10 Days #30 tablet 11/06/18 [Rx] Allergies/Adverse Reactions: Allergy/AdvReac Type Severity Reaction Status Date / Time Amoxicillin Allergy Swelling Verified 08/28/17 10:42 of Lip/Tongue/Throat Oxycodone AdvReac See Verified 08/28/17 10:42 Comments Date of admission: 11/05/18 17:01 Primary care physician: Corazon Vallejo MD Consults: 11/06/18 11:26 Consult to Gastroenterology [CONS] Routine Consulting Provider: [facility] Rosalia Reason for Consult: Positive stool occult Call Completed: Yes Discharging clinician: Ashwini Brady Anticipated date of discharge: 11/06/18 - Constitutional Vitals: Temp Pulse Resp BP Pulse Ox 98.1 F 64 16 153/87 97 11/06/18 12:14 11/06/18 12:14 11/06/18 12:14 11/06/18 12:14 11/06/18 12:14 Exam: CONSTITUTIONAL: Patient appears as an age appropriate female well developed, in no acute distress. EYES Clear sclerae, bilateral pupils are equal, reactive to light and accommodation. Extraocular movements are intact RESPIRATORY: No accessory muscle use, bilateral clear to auscultation, no wheezing, no crackles/rales. CARDIOVASCULAR: Regular heart rate, normal S1 and S2, no murmurs GASTROINTESTINAL: bowel sounds present, soft, mild tenderness. No hepatosplenomegaly. No bilateral CVA tenderness MUSCULOSKELETAL: Joints in normal range of motion, no clubbing, no edema, no cyanosis. Bilateral peripheral pulses 2+ LYMPHATIC no lymphadenopathy in neck, groin and axilla bilaterally, no thyromegaly. NEUROLOGIC: CN II to XII are grossly intact, no focal neurological deficit. Deep tendon reflexes 2+ bilaterally. Normal light touch sensation to upper and lower extremity PSYCHIATRIC: Oriented x3, with good insight, mood is euthymic. No hallucinations or delusions. SKIN: Skin warm and dry, no rashes, no open wound. - Patient Status Disposition: Home, Self-Care Condition: Good Overall status at discharge: patient is back to baseline - Discharge Instructions Follow Up With: Corazon Vallejo MD [Primary Care Provider] - - Diet and Activity Activity: increase activity as tolerated Diet: advance to your usual diet
[2018-11-06 14:59] VITALS: BP 161/98
[2018-11-07] MEDS ORDERED: Metoprolol 100 MG TABLET PO SCH (09:00)
== END 2018-11-06 16:43 | disposition home or self-care (01) | DRG 386 ==
LOC: 3ANU 11:26 → EMEROOARM 11:26 → 3ANU 16:32
PROVIDERS: ADMIT Hospitalist; ATTEND Hospitalist

== ENCOUNTER 2022-07-23 10:28 | Observation (INO) ==
[2022-07-23 12:39] LABS: Basophils % 0.4 %; Eosinophils % 0.5 %; Hematocrit 38.4 % (35.3-44.9); Hemoglobin 12.7 g/dL (11.5-15.4); Immature Granulocytes % 0.2 % (0-4); Lymphocytes % 12.7 %; Mean Corpuscular HGB Conc 33.1 g/dL (31.6-35.5); Mean Corpuscular Hemoglobin 31.2 pg (28.0-33.3); Mean Corpuscular Volume 94.3 fL (83.0-100.0); Mean Platelet Volume 10.3 fL (9.4-12.4); Monocytes # 0.8 K/mcL (0.0-1.3); Monocytes % 9.8 %; Neutrophils # 6.3 K/mcL (1.6-8.9); Platelet Count 228 K/mcL (140-400); Red Blood Count 4.07 M/mcL (3.82-4.97); Red Cell Distribution Width 14.2 % (11.5-14.5); Segmented Neutrophils % 76.4 %; White Blood Count 8.2 K/mcL (4.3-11.1)
[2022-07-23 13:00] LABS: INR 1.1; Prothrombin Time 11.7 Seconds (9.4-12.1)
[2022-07-23 13:02] LABS: Activated Partial Thrombo Time 30.8 Seconds (26.0-36.0)
[2022-07-23 13:08] LABS: BUN/Creatinine Ratio 15 (6-26); Blood Urea Nitrogen 18 mg/dL (8-23); Calcium 10.1 mg/dL (8.6-10.3); Carbon Dioxide 29 mEq/L (23-29); Chloride 100 mEq/L (98-107); Glucose 108 mg/dL (70-105); Osmolality,Calculated 288 (280-300); Potassium 3.8 mEq/L (3.5-5.1); Sodium 138 mEq/L (136-145); Troponin I < 0.03 ng/mL (< 0.04)
[2022-07-23 15:47] LABS: Bilirubin,Urine Negative (Negative); Blood,Urine Negative (Negative); Clarity,Urine Clear (Clear); Color,Urine Light-Yellow (Yellow); Glucose,Urine (UA) Normal (Normal); Hyaline Casts,Urine Few per lpf (None Seen); Ketones,Urine Negative (Negative); Leukocyte Esterase,Urine Negative (Negative); Nitrite,Urine Negative (Negative); Protein,Urine 50 mg/dL (Neg-Trace); RBC,Urine 0-3 per hpf (0-3); Squamous Epithelial Cell,Urine Few per hpf (None-Few); Urobilinogen,Urine Normal (Normal); WBC,Urine 0-3 per hpf (0-3)
[2022-07-23] MEDS ORDERED: Naloxone 0.4 MG/ML INJ IVP PRN ×2 (16:29→17:36)
[2022-07-23] MEDS ORDERED: *HR* HYDROcodone/Acet 5/325 mg TABLET PO PRN (16:41)
[2022-07-23] MEDS ORDERED: Ondansetron 4 MG/2 ML VIAL IVP PRN (16:49)
[2022-07-23] MEDS ORDERED: Melatonin 3 MG TABLET PO PRN (16:49)
[2022-07-23] MEDS: amLODIPine 5 MG TABLET PO SCH (20:05)
[2022-07-23] MEDS: Metoprolol XL (24 HR) Succ 25 MG TAB.ER.24H PO SCH (20:05)
[2022-07-24] MEDS ORDERED: *HR* Labetalol 20 MG/4 ML SYRINGE IVP ONE (02:53)
[2022-07-24] MEDS: Acetaminophen 325 MG TABLET PO PRN ×2 (03:33→21:32)
[2022-07-24 05:57] LABS: Basophils % 0.4 %; Eosinophils # 0.1 K/mcL (0.0-0.6); Eosinophils % 1.2 %; Hematocrit 36.4 % (35.3-44.9); Hemoglobin 12.2 g/dL (11.5-15.4); Immature Granulocytes % 0.4 % (0-4); Lymphocytes # 1.4 K/mcL (0.6-4.6); Lymphocytes % 18.8 %; Mean Corpuscular HGB Conc 33.5 g/dL (31.6-35.5); Mean Corpuscular Hemoglobin 31.4 pg (28.0-33.3); Mean Corpuscular Volume 93.6 fL (83.0-100.0); Mean Platelet Volume 10.6 fL (9.4-12.4); Monocytes # 0.9 K/mcL (0.0-1.3); Monocytes % 12.3 %; Platelet Count 214 K/mcL (140-400); Red Blood Count 3.89 M/mcL (3.82-4.97); Red Cell Distribution Width 14.2 % (11.5-14.5); Segmented Neutrophils % 66.9 %; White Blood Count 7.5 K/mcL (4.3-11.1)
[2022-07-24 06:18] LABS: Albumin 3.4 g/dL (3.5-5.7); Albumin/Globulin Ratio 1.4 (1.1-2.2); Bilirubin,Total 0.5 mg/dL (0.3-1.0); Calcium 9.7 mg/dL (8.6-10.3); Globulin 2.5 g/dL (2.4-3.5); Potassium 3.1 mEq/L (3.5-5.1); Total Protein 5.9 g/dL (6.4-8.9)
[2022-07-24] MEDS: amLODIPine 5 MG TABLET PO SCH (09:06)
[2022-07-24] MEDS: Metoprolol XL (24 HR) Succ 25 MG TAB.ER.24H PO SCH (09:18)
[2022-07-24 13:09] LABS: Thyroid Stimulating Hormone 2.708 mcIU/mL (0.340-5.600)
[2022-07-24] MEDS ORDERED: *HR* Labetalol 20 MG/4 ML SYRINGE IVP PRN (13:55)
[2022-07-24] MEDS ORDERED: Metoprolol XL (24 HR) Succ 25 MG TAB.ER.24H PO SCH (14:45)
[2022-07-25 02:59] LABS: Basophils % 0.4 %; Eosinophils # 0.1 K/mcL (0.0-0.6); Eosinophils % 1.3 %; Hematocrit 34.7 % (35.3-44.9); Hemoglobin 11.6 g/dL (11.5-15.4); Immature Granulocytes % 0.3 % (0-4); Lymphocytes # 1.6 K/mcL (0.6-4.6); Lymphocytes % 22.7 %; Mean Corpuscular HGB Conc 33.4 g/dL (31.6-35.5); Mean Corpuscular Hemoglobin 30.8 pg (28.0-33.3); Mean Platelet Volume 10.4 fL (9.4-12.4); Monocytes # 0.9 K/mcL (0.0-1.3); Monocytes % 11.9 %; Neutrophils # 4.5 K/mcL (1.6-8.9); Platelet Count 220 K/mcL (140-400); Red Blood Count 3.77 M/mcL (3.82-4.97); Segmented Neutrophils % 63.4 %; White Blood Count 7.2 K/mcL (4.3-11.1)
[2022-07-25 03:21] LABS: Potassium 3.1 mEq/L (3.5-5.1)
[2022-07-25] MEDS: amLODIPine 5 MG TABLET PO SCH (08:34)
[2022-07-25] MEDS: Valsartan 160 MG TABLET PO SCH ×2 (11:53→20:25)
[2022-07-25] MEDS ORDERED: *HR* Metoprolol 5 MG/5 ML VIAL IVP ONE (11:53)
[2022-07-25] MEDS: Metoprolol XL (24 HR) Succ 25 MG TAB.ER.24H PO SCH (15:27)
[2022-07-25] MEDS ORDERED: Gabapentin 100 MG CAPSULE PO SCH (21:00)
[2022-07-26 04:10] LABS: Basophils % 0.4 %; Eosinophils # 0.1 K/mcL (0.0-0.6); Hematocrit 36.3 % (35.3-44.9); Hemoglobin 12.2 g/dL (11.5-15.4); Immature Granulocytes % 0.3 % (0-4); Lymphocytes # 1.5 K/mcL (0.6-4.6); Lymphocytes % 19.2 %; Mean Corpuscular HGB Conc 33.6 g/dL (31.6-35.5); Mean Corpuscular Hemoglobin 31.4 pg (28.0-33.3); Mean Corpuscular Volume 93.3 fL (83.0-100.0); Mean Platelet Volume 10.9 fL (9.4-12.4); Monocytes % 13.2 %; Neutrophils # 5.2 K/mcL (1.6-8.9); Platelet Count 233 K/mcL (140-400); Red Blood Count 3.89 M/mcL (3.82-4.97); Red Cell Distribution Width 14.4 % (11.5-14.5); Segmented Neutrophils % 65.9 %; White Blood Count 7.9 K/mcL (4.3-11.1)
[2022-07-26 04:28] LABS: BUN/Creatinine Ratio 17 (6-26); Blood Urea Nitrogen 23 mg/dL (8-23); Calcium 10.4 mg/dL (8.6-10.3); Carbon Dioxide 28 mEq/L (23-29); Chloride 102 mEq/L (98-107); Glucose 100 mg/dL (70-105); Osmolality,Calculated 286 (280-300); Potassium 3.5 mEq/L (3.5-5.1); Sodium 136 mEq/L (136-145)
[2022-07-26 04:36] LABS: Troponin I < 0.03 ng/mL (< 0.04)
[2022-07-26] MEDS ORDERED: Regadenoson 0.4 MG/5 ML SYRINGE IVP ONE (05:52)
[2022-07-26] MEDS: Metoprolol XL (24 HR) Succ 25 MG TAB.ER.24H PO SCH (10:16)
[2022-07-26] MEDS: amLODIPine 5 MG TABLET PO SCH (10:16)
[2022-07-26] MEDS: Valsartan 160 MG TABLET PO SCH (10:16)
[2022-07-26 11:36] VITALS: BP 140/73; PULSE 56; TEMP 99.4; O2SAT 94
== END 2022-07-26 16:02 | disposition home or self-care (01) ==
LOC: EMEROOARM 10:28 → 3BNU 10:28 → SUATTDRO 16:49 → 3BNU 17:41
PROVIDERS: ADMIT Pharmacist; ATTEND Internal Medicine